=== PATIENT | female | born 2000 | race Caucasian/White ===

== ENCOUNTER 2021-02-01 14:21 | Outpatient (CLI) | payer OTHER | END 2021-02-01 23:59 | disposition home or self-care (01) | LOC: RAD 14:21 | PROVIDERS: ATTEND Obstetrics & Gynecology | DX: M25.561 Pain in right knee (principal); M54.41 Lumbago with sciatica, right side; M79.641 Pain in right hand; M25.532 Pain in left wrist | CPT/HCPCS: 72110; 72170 ==

== ENCOUNTER 2021-02-14 10:22 | Outpatient (CLI) | payer OTHER | END 2021-02-14 23:59 | disposition home or self-care (01) | LOC: CFH 10:22 | PROVIDERS: ATTEND Obstetrics & Gynecology | DX: N64.4 Mastodynia (principal) | CPT/HCPCS: 76642 ==